=== PATIENT | female | born 2000 ===

== ENCOUNTER 2022-12-11 14:09 | Emergency (ER) | payer BC, OTHER ==
--- OUTSIDE RECORDS SUMMARY | 2022-12-11 14:13 | XMS REPORT | Continuity of Care Document ---
:2000 Author Organization [facility] t Address [address] [place] [address]. [address] [place] [address] Care Team Providers Name Role Phone Pcp, Patient Does Not Have A Primary Care Physician [id number] Alesia Chin Attending Clinician DIAZGEN Attending Clinician Unavailable Lab, [facility] Fam Pob I Attending Clinician Unavailable Nicholas Wolfe MD Attending Clinician Only, Adc Test Attending Clinician Unavailable Doctor Unassigned, [place] Attending Clinician Unavailable Pavel Arizmendi Attending Clinician Payers Payer Name Policy Type Policy Number Effective Date Expiration Date Kristy RAJPUT O [id number] 2011 00:00:00 2020 00:00 :00 Problems Condition Condition Condition Status Onset Resolution Last Treating Co mments Source Name Details Category Date Date Treatment Clinician Date Gastritis Gastritis Problem Active 2017-01-07 Memoria (disorder) (disorder) 01:41:25 l Active Thomas Problem 01/07/2017 [facility] No known No known Disease Unive rs active active ity of problems problems [facility] Allergies, Adverse Reactions, Alerts Allergy Allergy Status Severity Reaction(s) Onset Inactive Treating Comm ents Source Name Type Date Date Clinician NO KNOWN Drug Active Univers ALLERGIE Class ity of S [facility] Social History Social Habit Start Date Stop Date Quantity Comments Source [facility] History of tobacco Passive smoker Un iversity of use [facility] Exposure to 2020-04-29 2020-05-29 Not sure University of SARS-CoV-2 (event) 00:00:00 09:04:00 [facility] Social History 2016-12-03 2016-12-03 [facility] Conor hernandez 18:58:58 18:58:58 History of Social 2014-12-01 2014-12-01 Univers ity of function 00:00:00 00:00:00 [facility] Sex Assigned At 2000 1999 [facility] 00:00:00 00:00:00 Hospital Smoking Status Start Date Stop Date Source Tobacco smoking consumption Meth [facility] unknown Never smoked tobacco [facility] Medications Ordered Filled Start Stop Current Ordering Indication Dosage Frequency Signature Comments Components Source Medication Medication Date Date Medication? Clinician (SIG) Name Name dexmethylph Yes Univer s enidate 5-20 ity of (FOCALIN 00:00: [place] XR) 10 mg 00 Medical 24 hr Branch capsule dexmethylph 0 Yes Univer s enidate 5-20 ity of (FOCALIN 00:00: [place] XR) 10 mg 00 Medical 24 hr Branch capsule dexmethylph 0 Yes Univer s enidate 5-20 ity of (FOCALIN 00:00: [place] XR) 10 mg 00 Medical 24 hr Branch capsule dexmethylph 0 Yes Univer s enidate 5-20 ity of (FOCALIN 00:00: [place] XR) 10 mg 00 Medical 24 hr Branch capsule dexmethylph 2014-0 Yes Univer s enidate 5-20 ity of (FOCALIN 00:00: [place] XR) 10 mg 00 Medical 24 hr Branch capsule dexmethylph 2014-0 Yes Univer s enidate 5-20 ity of (FOCALIN 00:00: [place] XR) 10 mg 00 Medical 24 hr Branch capsule Immunizations Ordered Immunization Filled Date Status Comments Sour ce Name Immunization Name Influenza Virus 2011-12-03 Completed Universit y of Vaccine 00:00:00 [facility] Influenza Virus 2011-12-03 Completed Universit y of Vaccine 00:00:00 [facility] Influenza Virus 2011-12-03 Completed Universit y of Vaccine 00:00:00 [facility] Influenza Virus 2011-12-03 Completed Universit y of Vaccine 00:00:00 [facility] Influenza Virus 2011-12-03 Completed Universit y of Vaccine 00:00:00 [facility] Meningococcal 2010-09-08 Completed University of Polysaccharide 00:00:00 [place] [facility] (groups A, C, Y and Branc h W-135) conjugate vaccine (MCV4P) TDAP 2010-09-08 Completed University of 00:00:00 [facility] Meningococcal 2010-09-08 Completed University of Polysaccharide 00:00:00 [place] [facility] ram[facility] (groups A, C, Y and Branc h W-135) conjugate vaccine (MCV4P) TDAP 2010-09-08 Completed University of 00:00:00 [facility] Meningococcal 2010-09-08 Completed University of Polysaccharide 00:00:00 [place] [facility] (groups A, C, Y and Branc h W-135) conjugate vaccine (MCV4P) TDAP 2010-09-08 Completed University of 00:00:00 [facility] Meningococcal 2010-09-08 Completed University of Polysaccharide 00:00:00 [place] [facility] (groups A, C, Y and Branc h W-135) conjugate vaccine (MCV4P) TDAP 2010-09-08 Completed University of 00:00:00 [facility] Meningococcal 2010-09-08 Completed University of Polysaccharide 00:00:00 [place] [facility] (groups A, C, Y and Branc h W-135) conjugate vaccine (MCV4P) TDAP 2010-09-08 Completed University of 00:00:00 [facility] Influenza Virus 2009-12-05 Completed Universit y of Vaccine 00:00:00 [facility] Influenza Virus 2009-12-05 Completed Universit y of Vaccine 00:00:00 [facility] Influenza Virus 2009-12-05 Completed Universit y of Vaccine 00:00:00 [facility] Influenza Virus 2009-12-05 Completed Universit y of Vaccine 00:00:00 [facility] Influenza Virus 2009-12-05 Completed Universit y of Vaccine 00:00:00 [facility] HEPATITIS A 2009-09-05 Completed University of 00:00:00 [facility] HEPATITIS A 2009-09-05 Completed University of 00:00:00 [facility] HEPATITIS A 2009-09-05 Completed University of 00:00:00 [facility] HEPATITIS A 2009-09-05 Completed University of 00:00:00 [facility] HEPATITIS A 2009-09-05 Completed University of 00:00:00 [facility] Influenza Virus 2008-10-31 Completed Universit y of Vaccine 00:00:00 [facility] Influenza Virus 2008-10-31 Completed Universit y of Vaccine 00:00:00 [facility] Influenza Virus 2008-10-31 Completed Universit y of Vaccine 00:00:00 [facility] Influenza Virus 2008-10-31 Completed Universit y of Vaccine 00:00:00 [facility] Influenza Virus 2008-10-31 Completed Universit y of Vaccine 00:00:00 [facility] HEPATITIS A 2008-07-12 Completed University of 00:00:00 [facility] Varicella 2008-07-12 Completed University of (varivax)(chicken 00:00:00 [place] [facility] pox) Branch HEPATITIS A 2008-07-12 Completed University of 00:00:00 [facility] Varicella 2008-07-12 Completed University of (varivax)(chicken 00:00:00 [place] [facility] pox) Branch HEPATITIS A 2008-07-12 Completed University of 00:00:00 [facility] Varicella 2008-07-12 Completed University of (varivax)(chicken 00:00:00 [place] [facility] pox) Branch HEPATITIS A 2008-07-12 Completed University of 00:00:00 [facility] Varicella 2008-07-12 Completed University of (varivax)(chicken 00:00:00 [place] [facility] pox) Branch HEPATITIS A 2008-07-12 Completed University of 00:00:00 [facility] Varicella 2008-07-12 Completed University of (varivax)(chicken 00:00:00 [place] [facility] pox) Branch Influenza Virus 2007-11-23 Completed Universit y of Vaccine 00:00:00 [facility] Influenza Virus 2007-11-23 Completed Universit y of Vaccine 00:00:00 [facility] Influenza Virus 2007-11-23 Completed Universit y of Vaccine 00:00:00 [facility] Influenza Virus 2007-11-23 Completed Universit y of Vaccine 00:00:00 [facility] Influenza Virus 2007-11-23 Completed Universit y of Vaccine 00:00:00 [facility] Influenza Virus 2007-01-13 Completed Universit y of Vaccine 00:00:00 [facility] Influenza Virus 2007-01-13 Completed Universit y of Vaccine 00:00:00 [facility] Influenza Virus 2007-01-13 Completed Universit y of Vaccine 00:00:00 [facility] Influenza Virus 2007-01-13 Completed Universit y of Vaccine 00:00:00 [facility] Influenza Virus 2007-01-13 Completed Universit y of Vaccine 00:00:00 [facility] MMR 2003-10-23 Completed University of 00:00:00 [facility] Polio (IPV/OPV) 2003-10-23 Completed Universit y of 00:00:00 [facility] DTAP 2003-10-23 Completed University of 00:00:00 [facility] MMR 2003-10-23 Completed University of 00:00:00 [facility] Polio (IPV/OPV) 2003-10-23 Completed Universit y of 00:00:00 [facility] DTAP 2003-10-23 Completed University of 00:00:00 [facility] MMR 2003-10-23 Completed University of 00:00:00 [facility] Polio (IPV/OPV) 2003-10-23 Completed Universit y of 00:00:00 [facility] DTAP 2003-10-23 Completed University of 00:00:00 [facility] MMR 2003-10-23 Completed University of 00:00:00 [facility] Polio (IPV/OPV) 2003-10-23 Completed Universit y of 00:00:00 [facility] DTAP 2003-10-23 Completed University of 00:00:00 [facility] MMR 2003-10-23 Completed University of 00:00:00 [facility] Polio (IPV/OPV) 2003-10-23 Completed Universit y of 00:00:00 [facility] DTAP 2003-10-23 Completed University of 00:00:00 [facility] HIB 4 Dose Schedule 2000-10-11 Completed Unive rsity of 00:00:00 [facility] Hep B, Adol or Pedi 2000-10-11 Completed Unive rsity of Dosage 00:00:00 [facility] Polio (IPV/OPV) 2000-10-11 Completed Universit y of 00:00:00 [facility] HIB 4 Dose Schedule 2000-10-11 Completed Unive rsity of 00:00:00 [facility] Hep B, Adol or Pedi 2000-10-11 Completed Unive rsity of Dosage 00:00:00 [facility] Polio (IPV/OPV) 2000-10-11 Completed Universit y of 00:00:00 [facility] HIB 4 Dose Schedule 2000-10-11 Completed Unive rsity of 00:00:00 [facility] Hep B, Adol or Pedi 2000-10-11 Completed Unive rsity of Dosage 00:00:00 [facility] Polio (IPV/OPV) 2000-10-11 Completed Universit y of 00:00:00 [facility] HIB 4 Dose Schedule 2000-10-11 Completed Unive rsity of 00:00:00 [facility] Hep B, Adol or Pedi 2000-10-11 Completed Unive rsity of Dosage 00:00:00 [facility] Polio (IPV/OPV) 2000-10-11 Completed Universit y of 00:00:00 [facility] HIB 4 Dose Schedule 2000-10-11 Completed Unive rsity of 00:00:00 [facility] Hep B, Adol or Pedi 2000-10-11 Completed Unive rsity of Dosage 00:00:00 [facility] Polio (IPV/OPV) 2000-10-11 Completed Universit y of 00:00:00 [facility] DTAP 2000-10-05 Completed University of 00:00:00 [facility] DTAP 2000-10-05 Completed University of 00:00:00 [facility] DTAP 2000-10-05 Completed University of 00:00:00 [facility] DTAP 2000-10-05 Completed University of 00:00:00 [facility] DTAP 2000-10-05 Completed University of 00:00:00 [facility] Pneumococcal 13 2000-09-28 Completed Universit y of Conjugate, PCV13 00:00:00 [facility] dical (Prevnar 13) Branch Pneumococcal 13 2000-09-28 Completed Universit y of Conjugate, PCV13 00:00:00 [place] [facility] (Prevnar 13) Branch Pneumococcal 13 2000-09-28 Completed Universit y of Conjugate, PCV13 00:00:00 [place] [facility] (Prevnar 13) Branch Pneumococcal 13 2000-09-28 Completed Universit y of Conjugate, PCV13 00:00:00 [place] [facility] (Prevnar 13) Branch Pneumococcal 13 2000-09-28 Completed Universit y of Conjugate, PCV13 00:00:00 [place] [facility] (Prevnar 13) Branch MMR 2000-07-19 Completed University of 00:00:00 [facility] Pneumococcal 13 2000-07-19 Completed Universit y of Conjugate, PCV13 00:00:00 [facility] dical (Prevnar 13) Branch Varicella 2000-07-19 Completed University of (varivax)(chicken 00:00:00 [place] [facility] pox) Branch MMR 2000-07-19 Completed University of 00:00:00 [facility] Branch Pneumococcal 13 2000-07-19 Completed Universit y of Conjugate, PCV13 00:00:00 [place] [facility] (Prevnar 13) Branch Varicella 2000-07-19 Completed University of (varivax)(chicken 00:00:00 [place] [facility] pox) Branch MMR 2000-07-19 Completed University of 00:00:00 [facility] Branch Pneumococcal 13 2000-07-19 Completed Universit y of Conjugate, PCV13 00:00:00 [place] [facility] (Prevnar 13) Branch Varicella 2000-07-19 Completed University of (varivax)(chicken 00:00:00 [place] [facility] pox) Branch MMR 2000-07-19 Completed University of 00:00:00 [facility] Pneumococcal 13 2000-07-19 Completed Universit y of Conjugate, PCV13 00:00:00 [place] [facility] (Prevnar 13) Branch Varicella 2000-07-19 Completed University of (varivax)(chicken 00:00:00 [place] [facility] pox) Branch MMR 2000-07-19 Completed University of 00:00:00 [facility] Pneumococcal 13 2000-07-19 Completed Universit y of Conjugate, PCV13 00:00:00 [place] [facility] (Prevnar 13) Branch Varicella 2000-07-19 Completed University of (varivax)(chicken 00:00:00 [place] [facility] pox) Branch Pneumococcal 13 2000-01-12 Completed Universit y of Conjugate, PCV13 00:00:00 [place] [facility] (Prevnar 13) Branch DTAP 2000-01-12 Completed University of 00:00:00 [facility] HIB 4 Dose Schedule 2000-01-12 Completed Unive rsity of 00:00:00 [facility] Pneumococcal 13 2000-01-12 Completed Universit y of Conjugate, PCV13 00:00:00 [place] [facility] (Prevnar 13) Branch DTAP 2000-01-12 Completed University of 00:00:00 [facility] HIB 4 Dose Schedule 2000-01-12 Completed Unive rsity of 00:00:00 [facility] DTAP 2000-01-12 Completed University of 00:00:00 [facility] Pneumococcal 13 2000-01-12 Completed Universit y of Conjugate, PCV13 00:00:00 [facility] dical (Prevnar 13) Branch HIB 4 Dose Schedule 2000-01-12 Completed Unive rsity of 00:00:00 [facility] Pneumococcal 13 2000-01-12 Completed Universit y of Conjugate, PCV13 00:00:00 [facility] dical (Prevnar 13) Branch DTAP 2000-01-12 Completed University of 00:00:00 [facility] HIB 4 Dose Schedule 2000-01-12 Completed Unive rsity of 00:00:00 [facility] Pneumococcal 13 2000-01-12 Completed Universit y of Conjugate, PCV13 00:00:00 [facility] dical (Prevnar 13) Branch DTAP 2000-01-12 Completed University of 00:00:00 [facility] HIB 4 Dose Schedule 2000-01-12 Completed Unive rsity of 00:00:00 [facility] Pneumococcal 13 1999 Completed Universit y of Conjugate, PCV13 00:00:00 [facility] dical (Prevnar 13) Branch Polio (IPV/OPV) 1999 Completed Universit y of 00:00:00 [facility] DTAP 1999 Completed University of 00:00:00 [facility] HIB 4 Dose Schedule 1999 Completed Unive rsity of 00:00:00 [facility] Pneumococcal 13 1999 Completed Universit y of Conjugate, PCV13 00:00:00 [facility] dical (Prevnar 13) Branch Polio (IPV/OPV) 1999 Completed Universit y of 00:00:00 [facility] DTAP 1999 Completed University of 00:00:00 [facility] DTAP 1999 Completed University of 00:00:00 [facility] HIB 4 Dose Schedule 1999 Completed Unive rsity of 00:00:00 [facility] Pneumococcal 13 1999 Completed Universit y of Conjugate, PCV13 00:00:00 [facility] dical (Prevnar 13) Branch Polio (IPV/OPV) 1999 Completed Universit y of 00:00:00 [facility] HIB 4 Dose Schedule 1999 Completed Unive rsity of 00:00:00 [facility] Pneumococcal 13 1999 Completed Universit y of Conjugate, PCV13 00:00:00 [place] [facility] (Prevnar 13) Branch Polio (IPV/OPV) 1999 Completed Universit y of 00:00:00 [facility] DTAP 1999 Completed University of 00:00:00 [facility] HIB 4 Dose Schedule 1999 Completed Unive rsity of 00:00:00 [facility] Pneumococcal 13 1999 Completed Universit y of Conjugate, PCV13 00:00:00 [facility] dical (Prevnar 13) Branch Polio (IPV/OPV) 1999 Completed Universit y of 00:00:00 [facility] DTAP 1999 Completed University of 00:00:00 [facility] HIB 4 Dose Schedule 1999 Completed Unive rsity of 00:00:00 [facility] Hep B, Adol or Pedi 1999 Completed Unive rsity of Dosage 00:00:00 [facility] Polio (IPV/OPV) 1999 Completed Universit y of 00:00:00 [facility] DTAP 1999 Completed University of 00:00:00 [facility] HIB 4 Dose Schedule 1999 Completed Unive rsity of 00:00:00 [facility] Hep B, Adol or Pedi 1999 Completed Unive rsity of Dosage 00:00:00 [facility] Polio (IPV/OPV) 1999 Completed Universit y of 00:00:00 [facility] DTAP 1999 Completed University of 00:00:00 [facility] DTAP 1999 Completed University of 00:00:00 [facility] HIB 4 Dose Schedule 1999 Completed Unive rsity of 00:00:00 [facility] Hep B, Adol or Pedi 1999 Completed Unive rsity of Dosage 00:00:00 [facility] Polio (IPV/OPV) 1999 Completed Universit y of 00:00:00 [facility] HIB 4 Dose Schedule 1999 Completed Unive rsity of 00:00:00 [facility] Hep B, Adol or Pedi 1999 Completed Unive rsity of Dosage 00:00:00 [place] [facility] Polio (IPV/OPV) 1999 Completed Universit y of 00:00:00 [facility] DTAP 1999 Completed University of 00:00:00 [facility] HIB 4 Dose Schedule 1999 Completed Unive rsity of 00:00:00 [facility] Hep B, Adol or Pedi 1999 Completed Unive rsity of Dosage 00:00:00 [facility] Polio (IPV/OPV) 1999 Completed Universit y of 00:00:00 [facility] DTAP 1999 Completed University of 00:00:00 [facility] HIB 4 Dose Schedule 1999 Completed Unive rsity of 00:00:00 [facility] Hep B, Adol or Pedi 1999 Completed Unive rsity of Dosage 00:00:00 [facility] Hep B, Adol or Pedi 1999 Completed Unive rsity of Dosage 00:00:00 [facility] Hep B, Adol or Pedi 1999 Completed Unive rsity of Dosage 00:00:00 [facility] Hep B, Adol or Pedi 1999 Completed Unive rsity of Dosage 00:00:00 [facility] Hep B, Adol or Pedi 1999 Completed Unive rsity of Dosage 00:00:00 [facility] DTAP Unknown Completed [facility] DTAP Unknown Completed [facility] DTAP Unknown Completed [facility] DTAP Unknown Completed [facility] DTAP Unknown Completed [facility] HIB 4 Dose Schedule Unknown Completed Unive rsity of [facility] HIB 4 Dose Schedule Unknown Completed Unive rsity of [facility] HIB 4 Dose Schedule Unknown Completed Unive rsity of [facility] HIB 4 Dose Schedule Unknown Completed Unive rsity of [facility] HEPATITIS A Unknown Completed [facility] HEPATITIS A Unknown Completed [facility] Hep B, Adol or Pedi Unknown Completed Unive rsity of Dosage [facility] Hep B, Adol or Pedi Unknown Completed Unive rsity of Dosage [facility] Hep B, Adol or Pedi Unknown Completed Unive rsity of Dosage [facility] Influenza Virus Unknown Completed Universit y of Vaccine [facility] Influenza Virus Unknown Completed Universit y of Vaccine [facility] Influenza Virus Unknown Completed Universit y of Vaccine [facility] Influenza Virus Unknown Completed Universit y of Vaccine [facility] Influenza Virus Unknown Completed Universit y of Vaccine [facility] Meningococcal Unknown Completed [facility] ramana (groups A, C, Y and Branc h W-135) conjugate vaccine (MCV4P) MMR Unknown Completed [facility] MMR Unknown Completed [facility] Pneumococcal 13 Unknown Completed Universit y of Conjugate, PCV13 [facility] dical (Prevnar 13) Branch Pneumococcal 13 Unknown Completed Universit y of Conjugate, PCV13 [facility] dical (Prevnar 13) Branch Pneumococcal 13 Unknown Completed Universit y of Conjugate, PCV13 [facility] dical (Prevnar 13) Branch Pneumococcal 13 Unknown Completed Universit y of Conjugate, PCV13 [facility] dical (Prevnar 13) Branch Polio (IPV[facility]OPV) [facility] Polio (IPV/OPV) Unknown Completed [facility] Polio (IPV/OPV) Unknown [facility] Polio (IPV/OPV) Unknown Completed [facility] TDAP Unknown Completed [facility] Varicella Unknown Completed [facility] (varivax)(chicken [place] [facility] pox) Branch Varicella Unknown Completed [facility] (varivax)(chicken [place] [facility] pox) Branch PFIZER COVID-19 MRNA Unknown Completed [facility] PFIZER COVID-19 MRNA Unknown Completed [facility] Procedures Procedure Date / Time Performed Performing Clinician [facility] e ASSIGNMENT OF BENEFITS 2020-05-29 13:58:30 Doctor Unassigned, No [facility] Plan of Care Planned Activity Planned Date Details Comments Source Future Scheduled 2022-11-29 [facility]FLUENZA VACCINE [facility] Test 00:24:40 (#1) [code = INFLUENZA VACCINE (#1)] Future Scheduled 2022-11-29 [facility] VACCINES > 60 YR [facility]40 (1 - 1-dose 60+ series) [code = RSV VACCINES > 60 YR (1 - 1-dose 60+ series)] Future Scheduled 2022-11-29 Scre[facility] Test 00:24:40 Chlamydia trachomatis (procedure) [code = 610472503] Future Scheduled 2022-11-29 [facility] for [facility] Test 00:24:40 malignant neoplasm of cervix (procedure) [code = 535159957] Future Scheduled 2022-11-29 COVID-19 VACCINE ([address] [place] [address] Test 00:24:40 ) [code = COVID-19 VACCINE ()] Encounters Start End Encounter Admission Attending Care Care Encounter Source Date/Time Date/Time Type Type Clinicians Facility Department ID 2021-01-20 2021-01-20 Telephone de [facility] [id number] Univers 00:00:00 00:00:00 ZHANG Yen [id number] ity [address] [facility] [id number] [facility] [id number] [facility] [address] 2020-07-29 2020-07-29 Outpatient SEPTIMUS, [facility] [id number] [place] 00:00:00 00:00:00 GEN 484 Method i 2020-07-05 2020-07-05 Outpatient [facility] [id number] [place] 00:00:00 00:00:00 046 Method i 2020-05-29 2020-05-29 Laboratory Lab, Adc Fam Pob I [facility] [id number] Univers 14:31:52 14:51:52 Only [facility] [id number] ity of [place] [id number] [facility] as Professio [phone] [place] dical nal [address] 2020-05-29 2020-05-29 Laboratory Only, Adc Test [place] 1.2.840. [id number] Univers 09:06:07 09:21:07 Only EnrriquebriannaNicholas [id number] ity of [place] [id number] [facility] [phone] [facility] [address] 2020-05-29 2020-05-29 Outpatient R [facility] [id number] Univers 08:45:00 08:45:00 ity of [facility] 2020-05-29 2020-05-29 Orders Doctor PRESTON 1.2.840.114 [id number] Univers 00:00:00 00:00:00 Only Unassigned, LAWANDA [id number] ity of [facility] [id number] Lino as [phone] [facility] [address] 2020-05-29 2020-05-29 Patient Doctor KARY 1.2.840.114 [id number] Univers 00:00:00 00:00:00 Secure Msg Unassigned, LAWANDA [id number] ity of [facility] [id number] Lino as [phone] [facility] [address] 2020-05-29 2020-05-29 Letter Doctor KARY [id number] [id number] Univers 00:00:00 00:00:00 (Out) Unassigned, LAWANDA [id number] ity of [facility] [id number] Lino as [phone] [facility] [address] 2017-01-04 2017-01-04 Ambulatory nullFlavo [facility] [id number] Memoria 15:40:00 15:40:00 Pre-Reg r Gastroenter 01 l lenny De La Cruz 2017-01-04 2017-01-04 Outpatient [place] IE [id number] Memoria 09:40:00 09:40:00 supa Guzman 2017-01-04 2017-01-04 Outpatient Ugo [facility] [id number] 09:40:00 09:40:00 Pavel 01 Derrick 2016-12-03 2016-12-03 Outpatient IE IE [id number] Memoria 14:00:00 14:00:00 00 supa Guzman Results This patient has no known results.
[2022-12-11 15:40] LABS: Specific Gravity 1.015 (1.005-1.030)
[2022-12-11 15:42] LABS: Absolute Lymphocytes (CBC) 0.8 K/uL (0.7-4.9); Hematocrit 33.1 % (36.0-45.0); Lymphocytes % 10.9 % (15.3-44.8); MCV 79.2 fL (80-100); MPV 8.9 fL (7.6-11.3); Platelets 351 thou/uL (152-406); RBC Red Blood Cell Count 4.18 M/uL (3.86-4.86)
[2022-12-11 15:46] LABS: Specific Gravity 1.015 (1.005-1.030); Urine Bacteria None Seen /HPF (<20); Urine Bilirubin NEGATIVE (Negative); Urine Blood Negative (Negative); Urine Clarity Turbid (Clear); Urine Color Light-Yellow (Yellow); Urine Glucose NEGATIVE (Negative); Urine Mucus Slight /HPF (None Seen); Urine Protein NEGATIVE (Negative); Urine RBC <5 /HPF (None Seen); Urine Urobilinogen Normal (Normal)
[2022-12-11 15:56] LABS: Albumin 4.2 g/dL (3.4-5.0); Bilirubin Total 0.3 mg/dL (0.2-1.0); Potassium 3.5 mEq/L (3.5-5.1); Protein, Total 7.8 g/dL (6.4-8.2)
--- NOTE | 2022-12-11 16:00 | ER ---
Nurse's Notes [facility] Name: Georgia Moreno Age: 22 yrs Sex: Female : 2000 Arrival Date: 12/11/2022 Time: 14:09 Bed IW1 Private MD: Diagnosis: Abdominal pain, unspecified;Irritable bowel syndrome without diarrhea Presentation: 12/11 14:36 Chief complaint: Patient states: abdominal pain, all quadrants. Coronavirus screen: tm6 Vaccine status: Patient reports receiving the 2nd dose of the covid vaccine. Client denies travel out of the [place] in the last 14 days. Client indicates they have traveled out of the [place] in the last 14 days. At this time, unable to obtain information related to travel outside the [place] Ebola Screen: Patient negative for fever greater than or equal to 101.5 degrees Fahrenheit, and additional compatible Ebola Virus Disease symptoms Patient denies exposure to infectious person. Patient denies travel to an Ebola-affected area in the 21 days before illness onset. No symptoms or risks identified at this time. Initial Sepsis Screen: Does the patient meet any 2 criteria? No. Patient's initial sepsis screen is negative. Does the patient have a suspected source of infection? No. Patient's initial sepsis screen is negative. Risk Assessment: Do you want to hurt yourself or someone else? Patient reports no desire to harm self or others. Onset of symptoms was December 11, 2022. 14:36 Method Of Arrival: Ambulatory tm6 14:36 Acuity: CARLEEN 3 tm6 Triage Assessment: 14:38 General: Appears uncomfortable, Behavior is calm, cooperative, appropriate for age. tm6 Pain: Complains of pain in abdomen. GI: Abdomen is flat, non-distended, Abd is non tender. Historical: - Allergies: 14:38 No Known Allergies; tm6 - PMHx: 14:38 Tom; Bile Reflux; gastritis; GERD; Pernicious Anemia; Hypothyroidism; tm6 - PSHx: 14:38 None; tm6 - Immunization history:: Adult Immunizations up to date. - Social history:: Smoking status: Patient denies any tobacco usage or history of. Patient/guardian denies using alcohol. Screenin:19 [facility] ED Fall Risk Assessment (Adult) History of falling in the last 3 months, ld1 including since admission No falls in past 3 months (0 pts). Abuse screen: Denies threats or abuse. Denies injuries from another. Nutritional screening: No deficits noted. Tuberculosis screening: No symptoms or risk factors identified. Assessment: 16:19 Reassessment: See triage assessment. ld1 Vital Signs: 14:36 BP 134 / 89; Pulse 96; Resp 18; Temp 99.2(TE); Pulse Ox 100% ; Weight 62.14 kg; Height tm6 5 ft. 5 in. ; Pain 7/10; 14:36 Body Mass Index 22.80 (62.14 kg, 165.1 cm) tm6 14:36 Pain Scale: Adult tm6 ED Course: 14:25 Patient arrived in ED. ts1 14:26 Malaika Barlow PA-C is PHCP. sb4 14:26 Leo Callaway MD is Attending Physician. sb4 14:38 Triage completed. tm6 14:38 Arm band placed on right wrist. tm6 15:32 CBC with Diff Sent. bc6 15:32 CMP Sent. bc6 15:32 Lipase Sent. bc6 15:32 Test, Urine Sent. bc6 15:32 Urinalysis w/ reflexes Sent. bc6 15:32 Inserted saline lock: 20 gauge in left antecubital area, using aseptic technique. Blood bc6 collected. 16:19 Patient has correct armband on for positive identification. Placed in gown. Bed in low ld1 position. Call light in reach. Side rails up X2. Client placed on continuous cardiac and pulse oximetry monitoring. NIBP monitoring applied. Door closed. Noise minimized. Warm blanket given. 16:19 No provider procedures requiring assistance completed. IV discontinued, intact, ld1 bleeding controlled, No redness/swelling at site. Administered Medications: No medications were administered Medication: 16:19 VIS not applicable for this client. ld1 Outcome: 15:59 Discharge ordered by . sb4 16:19 Discharged to home ambulatory, ld1 16:19 Condition: stable 16:19 Discharge instructions given to patient, Instructed on discharge instructions, follow up and referral plans. Demonstrated understanding of instructions, follow-up care, 16:20 Patient left the ED. ld1 Signatures: Chelle Easley RN RN ld1 Malaika Barlow PA-C PA-C sb4 Asha Lawler bc6 Alva Long PAS PAS ts1 Sharona Garcia, RN RN tm6 Corrections: (The following items were deleted from the chart) 14:38 Allergies: No Known Allergies; tm6 tm6 14:38 Allergies: IBS; tm6 tm6
--- NOTE | 2022-12-11 16:00 | EDPHYS ---
Physician Documentation [facility] Name: Georgia Moreno Age: 22 yrs Sex: Female : 2000 Arrival Date: 12/11/2022 Time: 14:09 Bed IW1 Private MD: ED Physician Leo Callaway HPI: 12/12 08:10 This 22 yrs old Female presents to ER via Ambulatory with complaints of Abdominal Pain. sb4 08:10 The patient presents with abdominal pain that is diffuse. Onset: The symptoms/episode sb4 began/occurred just prior to arrival. The symptoms do not radiate. Associated signs and symptoms: none. The symptoms are described as vague. Modifying factors: The symptoms are alleviated by nothing, the symptoms are aggravated by nothing. The patient has experienced similar episodes in the past, multiple times. The patient has been recently seen by a physician:. patient states she started experiencing abdominal pain and was not sure if it was related to her IBS or not but wanted to have it checked. denies any fever, nausea, vomiting, diarrhea, constipation. Historical: - Allergies: 12/11 14:38 No Known Allergies; tm6 - PMHx: 14:38 Tom; Bile Reflux; gastritis; GERD; Pernicious Anemia; Hypothyroidism; tm6 - PSHx: 14:38 None; tm6 - Immunization history:: Adult Immunizations up to date. - Social history:: Smoking status: Patient denies any tobacco usage or history of. Patient/guardian denies using alcohol. ROS: 12/12 08:10 Constitutional: Negative for fever, chills, and weight loss, sb4 Abdomen/GI: Positive for abdominal pain, All other systems are negative, Exam: 08:10 Constitutional: This is a well developed, well nourished patient who is awake, alert, sb4 and in no acute distress. Head/Face: Normocephalic, atraumatic. Eyes: Extra-ocular motions intact. Periorbital areas with no swelling, redness, or edema. ENT: Mucous membranes moist. Cardiovascular: Regular rate and rhythm with a normal S1 and S2. Respiratory: Lungs have equal breath sounds bilaterally, clear to auscultation and percussion. No rales, rhonchi or wheezes noted. No increased work of breathing, no retractions or nasal flaring. Abdomen/GI: Soft, non-tender, no distension. Skin: Warm, dry with normal turgor. Normal color with no rashes, no lesions, and no evidence of cellulitis. MS/ Extremity: Pulses equal, no cyanosis. Neurovascular intact. Full, normal range of motion. Neuro: Awake and alert, GCS 15, oriented to person, place, time, and situation. Motor strength 5/5 in all extremities. Sensory grossly intact. Vital Signs: 12/11 14:36 BP 134 / 89; Pulse 96; Resp 18; Temp 99.2(TE); Pulse Ox 100% ; Weight 62.14 kg; Height tm6 5 ft. 5 in. ; Pain 08/24; 14:36 Body Mass Index 22.80 (62.14 kg, 165.1 cm) tm6 14:36 Pain Scale: Adult tm6 MDM: 14:40 Patient medically screened. sb4 12/12 08:10 Differential diagnosis: Cholelithiasis, gastritis, gastroesophageal reflux disease, sb4 non-specific abd pain, pancreatitis, urinary tract infection. Data reviewed: vital signs, nurses notes, lab test result(s), and as a result, I will discharge patient. Historians other than the Patient: Parent: mother. Counseling: I had a detailed discussion with the patient and/or guardian regarding the historical points, exam findings, and any diagnostic results supporting the discharge/admit diagnosis, lab results, to return to the emergency department if symptoms worsen or persist or if there are any questions or concerns that arise at home. ED course: patient states she feels better. does not want CT. is requesting to be discharged. 12/11 14:36 Order name: CBC with Diff; Complete Time: 15:47 tm6 12/11 14:36 Order name: CMP; Complete Time: 15:58 tm6 12/11 14:36 Order name: Lipase; Complete Time: 15:58 tm6 12/11 14:36 Order name: Test, Urine; Complete Time: 15:47 tm6 12/11 14:36 Order name: Urinalysis w/ reflexes; Complete Time: 15:47 tm6 12/11 14:36 Order name: IV Saline Lock; Complete Time: 15:32 tm6 12/11 14:36 Order name: Labs collected and sent; Complete Time: 15:32 tm6 Administered Medications: No medications were administered Disposition Summary: 12/11/22 15:59 Discharge Ordered Notes: Location: Home sb4 Problem: new sb4 Symptoms: have improved sb4 Condition: Stable sb4 Diagnosis - Abdominal pain, unspecified sb4 - Irritable bowel syndrome without diarrhea sb4 Followup: sb4 - With: Emergency Department - When: As needed - Reason: Trouble breathing, Worsening of condition Discharge Instructions: - Discharge Summary Sheet sb4 - Abdominal Pain, Adult sb4 - Irritable Bowel Syndrome, Adult sb4 Forms: - Medication Reconciliation Form sb4 - Thank You Letter sb4 - Antibiotic Education sb4 - Prescription Opioid Use sb4 - Patient Portal Instructions sb4 - Leadership Thank You Letter sb4 Prescriptions: - dicyclomine 20 mg Oral tablet - take 1 tablet ORAL route 3 times per day; 20 tablet; Refills: 0, Product sb4 Selection Permitted Signatures: Dispatcher [employer] Malaika Munson PA-C PA-C sb4 Sharona Garcia RN RN tm6 Corrections: (The following items were deleted from the chart) 12/11 14:39 14:38 Allergies: No Known Allergies; tm6 tm6 14:39 14:38 Allergies: IBS; tm6 tm6
[2022-12-11 17:09] VITALS: BP 134/89; TEMP 99.2; O2SAT 100
== END 2022-12-11 16:20 | disposition home or self-care (01) ==
LOC: ER 14:09
DX: K58.9 Irritable bowel syndrome, unspecified (principal); K21.9 Gastro-esophageal reflux disease without esophagitis; D64.9 Anemia, unspecified; E03.9 Hypothyroidism, unspecified; E06.3 Autoimmune thyroiditis
CPT/HCPCS: 36415; 80053; 81001; 81025; 83690; 85025; 99284